=== PATIENT | female | born 1965 | race Two or more races ===

== ENCOUNTER 2021-07-16 10:34 | Outpatient (CLI) | payer MEDICAID | END 2021-07-16 23:59 | disposition home or self-care (01) | LOC: LAB 10:34 | PROVIDERS: ATTEND Student in an Organized Health Care Education/Training Program | DX: Z01.812 Encounter for preprocedural laboratory examination (principal); Z20.822 Contact with and (suspected) exposure to COVID-19 | CPT/HCPCS: C9803; U0003 ==